=== PATIENT | female | born 1955 | race Caucasian/White ===

== ENCOUNTER → 2017-04-20 | Outpatient (CLI) | payer BC ==
[~2017-04-20] MED LIST: ALBU1AER9 INH; COEN1CAP28 PO; ESCI1TAB6 PO; MELATAB2 PO; THYR32.55 PO; THYR65TA11 PO; TRAS440I2 IV; WARF5TAB90 PO
[2017-04-20 13:56] VITALS: BP 148/84; PULSE 87; TEMP 36.3; O2SAT 96
--- NOTE | 2017-04-20 17:16 | Radiation Oncology Follow-Up ---
Radiation Oncology Follow-Up Date of Visit Apr 20, 2017. (Zainab Kilgore PA-C) Reason For Visit 6 month follow-up (Zainab Kilgore PA-C) Radiation Completion Date 09/09/16 (Zainab Kilgore PA-C) Diagnosis (1) Breast cancer Status: Resolved Onset Date: 11/27/2015 Histology Subtype: ductal Stage: ll (A) Permanent Comment: 1. Bilateral mastectomies - 01/04/2016 - [facility] (Dr. Rojas) Estrogen receptor negative, progesterone receptor negative and HER-2/aristides positive 2. Chemotherapy - Tanvi/SULEIMAN -completed 07/07/2016- (Dr. Fowler) 3. Status post completion of radiation therapy 09/09/2016 received 6240 cGy 4. We'll continue Herceptin for a total of one year Last Edited By: Zainab Kilgore on Oct 12, 2016 16:28 (Zainab Kilgore PA-C) History of Present Illness Ms. Hidalgo is a 60-year-old female who presents with locally advanced left breast cancer (invasive ductal carcinoma, ER/MD negative, HER-2 positive, pT1N1 , stage II). The patient was treated with a mastectomy and sentinel lymph node biopsy on 01/04/2016 followed by Tanvi/SULEIMAN underneath the supervision of Dr. Fitz Fowler. The patient continues to follow at [facility] as well. We previously saw the patient in consultation regarding the role of postmastectomy radiation therapy. The patient previously saw a radiation oncologist at [facility] who advised against radiation therapy and we saw the patient in consultation to discuss the role of postmastectomy radiation therapy. We did explain to the patient that the data is controversial for patients with 1 lymph node positive at the time of the sentinel lymph node biopsy and that the older trials ([place], [place]) support postmastectomy radiation therapy however it was with inferior chemotherapy compared to moderate treatment regimens. The patient understands that there may not be a benefit postmastectomy radiation therapy with moderate chemotherapy and there could be additional increased risks for cardiotoxicity and pulmonary toxicity however she would still like to continue with postmastectomy radiation therapy. We do think it is reasonable and have offered to treat her with postmastectomy radiation therapy with or without a chest wall boost. We did also discuss the role of the chest wall boost in explained that it is extrapolated from the lumpectomy boost data for patients with intact breasts. At this point, the patient has elected for postmastectomy radiation therapy and will consider the role of a boost as she undergoes treatment. We explained that is reasonable as well. The patient just recently finished chemotherapy so we will bring her back next week for CT simulation to initiate treatment planning. We reviewed the epidemiology, natural course, prognosis and management of breast cancer. We also briefly discussed the role of screening and history regarding breast cancer as well. We then went further discussion regarding the role of postmastectomy radiation therapy. We discussed the large randomized trials which included the [place] 82 b/c trials and the [facility] trial that evaluated the role of postmastectomy radiation therapy. We discussed the design of the trials and how they evaluated patients with annette positive disease as well as those with pathologic T3-T4 disease. We explained that there is an overall survival benefit with the addition of post-mastectomy radiation therapy for patients with one of more positive lymph nodes and for those with T3-T4 disease. We then discussed the [employer] meta-analysis from 2013 which has shown that breast cancer patients with positive annette disease did have a breast cancer mortality benefit with the addition of postmastectomy radiation therapy. We then went on to further discuss the indications, alternatives, benefits, risks, and side effects of external beam radiation therapy in the treatment of breast cancer. We explained the treatment planning process as well as the daily procedures involved with treatment of breast cancer. We explained the most common side effects including but not limited to skin erythema, lymphedema , cardiovascular disease, pulmonary disease, thyroid disease, skin breakdown, dry desquamation, moist desquamation, fatigue, risk of development of a secondary malignancy and infection. We also discussed that there is also risk for increased lymphedema in the axilla/arm. We also discussed that there is a risk for the development of radiation pneumonitis and development/progression of heart disease following treatment with radiation therapy for breast cancer. We also explained that there is a low but possible risk for the development of a secondary malignancy following the use of radiation therapy for the treatment of breast cancer. The patient understands this and would be willing to consent to treatment. After the completion of her dose dense chemotherapy she returned for radiation therapy. She underwent conventional radiation therapy. Treatment dose completed 09/09/2016. She received 6240 cGy. (Zainab Kilgore PA-C) Interim History She has had mild chest wall discomfort. This happens if she lifts something and presses against the anterior chest wall. She has noticed no redness. She has noted an area of fibrous tissue above the incision line towards the axilla. This area is not firm and does not appear to be enlarging over time. There is no change in the axilla and no swelling of her arm. She continues on the Herceptin every 3 weeks. This will be finished this month. She underwent a CT of the chest 01/18/2017. This was performed to follow-up on a pulmonary nodule. She did receive the results on her [employer] today and was concerned with the reading. This was reviewed and showed a slight interval enlargement of the left upper lobe pulmonary nodule with new 8 x 4 mm nodule in the left lung apex and 10 mm nodule in the lingula. Recommend a follow-up chest CT in 3 months. She has had a cough with congestion over the past several months. She has yellow colored sputum. This seems to be becoming worse more recently. She denies wheezing. (Zainab Kilgore PA-C) Allergies Coded Allergies: No Known Allergies (Unverified , 07/24/16) Home Medications Scheduled Coenzyme Q10 (Ubidecarenone) (Co Q10), 1 CAP PO DAILY Escitalopram Oxalate (Lexapro), 10 MG PO DAILY Melatonin (Melatonin Maximum Strengt), 5 MG PO HS Thyroid (Nature-Throid), 65 MG PO QAM Thyroid (Nature-Throid), 32.5 MG PO QPM Trastuzumab (Herceptin), 1 APPL IV [id number] Warfarin Sodium (Coumadin), 5 MG PO 4XWK Warfarin Sodium (Coumadin), 2.5 MG PO 3XWK Scheduled PRN Albuterol Sulfate (Proair Hfa), 2 PUFFS INH Q4H PRN for Shortness of Breath Review of Systems Gastrointestinal: Symptoms: WNL, Nausea GI Comments: Occ Nausea (from herceptin) Oral: Symptoms: No Problems Respiratory: Symptoms: WNL Other Respiratory: Patient currently has cold which makes her cough Urinary: Symptoms: WNL Skin: Symptoms: No Problems Breast: Right Upper Arm Measurement: 26.0 Right Mid Arm Measurement: 20.9 Right Wrist Measurement: 14.9 Left Upper Arm Measurement: 26.0 Left Mid Arm Measurement: 20.5 Left Wrist Measurement: 14.3 Arm Dominence: Right (Zainab Kilgore PA-C) Physical Exam Vital Signs Date Time Temp Pulse Resp B/P (MAP) Pulse Ox O2 Delivery O2 Flow Rate FiO2 04/20/17 13:56 36.3 87 16 148/84 96 Fatigue: None General Appearance: no apparent distress Eyes: normal inspection, EOMI ENT: normal ENT inspection, hearing grossly normal Neck: no adenopathy, thyroid normal Respiratory/Chest: no respiratory distress, no accessory muscle use, + pertinent finding (bronchial breath sounds with cough) Breast: Examination of the anterior chest wall reveals status post bilateral mastectomies. There is no erythema or hyperpigmentation. Tattoos are noted. Along the incision line toward the axilla there are changes of fibrocystic tissue. There is no axillary adenopathy. Using the Hornick score cosmesis she has a good outcome. Cardiovascular: regular rate, rhythm, no gallop, no murmur Extremities: no pedal edema Neurologic/Psychiatric: no motor/sensory deficits, alert, normal mood/affect Skin: warm/dry Lymphatic: no adenopathy (Zainab Kilgore PA-C) Additional Studies 04/20/2017 10:32 AM - Interface, Rad In Narrative EXAM EXAM: CT THORAX WITHOUT CONTRAST DATE and TIME: 04/17/2017 11:19 am HISTORY CLINICAL INFORMATION: lung nodule (ROBERTO) surveillance TECHNIQUE Oral Contrast: Oral contrast was not administered. IV Contrast: No IV contrast used COMPARISON CT THORAX WITHOUT CONTRAST dated 10/13/2016 FINDINGS MEDIASTINUM AND SHANNON: No mediastinal or hilar lymphadenopathy. HEART: There is no pericardial effusion. LARGE AIRWAYS: Unremarkable LUNGS: There has been slight interval enlargement of left upper lobe pulmonary nodule measuring 11 millimeters, previously measuring 9-10 millimeter. There is a new 8 x 4 millimeter nodule in the left lung apex (series 2, image 33). There is a new pleural-based nodule in the lingula measuring 10 millimeters with adjacent tree-in-bud opacity. New focal ground-glass opacity more anteriorly in the lingula. PLEURA: There are no pleural effusions. CHEST WALL/SOFT TISSUES: There is no axillary lymphadenopathy. LINES AND DEVICES: Right IJ MediPort catheter in place. BONES: Degenerative changes in the spine. VESSELS: Normal caliber. UPPER ABDOMEN: Unremarkable IMPRESSION Slight interval enlargement of left upper lobe pulmonary nodule with new 8 x 4 millimeter nodule in the left lung apex and 10 millimeter nodule in the lingula. Recommend follow-up chest CT scan in 3 months. (Zainab Kilgore PA-C) Assessment & Plan Plan: The patient is also seen and examined by Dr. Corrales. She'll be seeing Dr. Fowler on May 05. The chest CT was reviewed. We received a note from Dr. Bryan. He also had reviewed the CT. He discussed this with the patient. He has recommended a recheck CT in 3 months. We discussed with her that these areas are below the threshold for PET scanning. For her upper respiratory infection she was given a prescription for a Z-Rico. We asked her to return to our office in 1 year. She may call if she has any questions or concerns in the interim. (Zainab Kilgore PA-C) I agree with note created by Zainab Kilgore PA-C. I reviewed the patient's chart and information with her. I have examined and evaluated the patient. I reviewed relevant clinical information and answered the patient's and/or family' s questions. (Veeral. Corrales MD) Total Time In Follow-Up We spent 30 minutes speaking to the patient and performing examination. I spent 15 minutes reviewing information and completing this note. (Zainab Kilgore PA-C) I spent 15 minutes examining and counseling the patient. (Veeral. Corrales MD) Copy To Eddi Muir M.D.; Yan Mcdonough MD; Atul Bryan M.D.; Fitz Fowler M.D. Problem Qualifiers (1) Breast cancer: Breast location: central portion of breast Estrogen receptor status: negative Patient sex: female Laterality: left Qualified Codes: C50.112 - Malignant neoplasm of central portion of left female breast; Z17.1 - Estrogen receptor negative status [ER-]
== END | disposition home or self-care (01) ==
LOC: C.ONC 13:28
PROVIDERS: ATTEND Radiology Radiation Oncology
DX: Z08 Encounter for follow-up examination after completed treatment for malignant neoplasm (principal); Z92.3 Personal history of irradiation; Z85.3 Personal history of malignant neoplasm of breast